=== PATIENT | male | born 1970 | race Hispanic/Latino ===

== ENCOUNTER 2022-03-09 23:38 | Emergency (ER) | payer OTHER ==
[~2022-03-09] VITALS: Ht 167.6 cm; Wt 126.6 kg
[~2022-03-09 23:38] MED LIST: BACI30OI6 TP
[2022-03-10 01:54] VITALS: BP 103/56
== END 2022-03-10 02:38 | disposition home or self-care (01) ==
LOC: EDH 23:38
DX: S46.212A Strain of muscle, fascia and tendon of other parts of biceps, left arm, initial encounter (principal); W19.XXXA Unspecified fall, initial encounter; Y93.89 Activity, other specified; Y92.89 Other specified places as the place of occurrence of the external cause; Y99.8 Other external cause status
CPT/HCPCS: 29105; 73030; 73060